=== PATIENT | female | born 1980 | race Caucasian/White ===

== ENCOUNTER 2022-07-22 08:42 | Outpatient (CLI) | payer OTHER, SELFPAY ==
[2022-07-22 08:55] LABS: Hematocrit 41.7 % (35.0-49.0); Hemoglobin 14.2 g/dL (12.0-15.0); Mean Corpuscular HGB Conc 34.1 g/dL (32.0-36.0); Mean Corpuscular Hemoglobin 31.4 pg (27.0-31.0); Mean Corpuscular Volume 92.3 fL (78.0-102.0); Mean Platelet Volume 11.1 fl (9.2-11.8); Platelet Count Result 222 K/mm3 (150-420); Red Blood Count 4.52 M/mm3 (4.20-5.40); Red Cell Distribution Width 12.3 % (11.6-14.4); White Blood Count 8.6 K/mm3 (4.8-10.8)
[2022-07-22 09:47] LABS: Alanine Aminotransferase 16 U/L (14-59); Albumin Level 3.8 g/dL (3.4-5.0); Alkaline Phosphatase 66 U/L (46-116); Anion Gap 8 mmol/L (8-16); Aspartate Amino Transferase 14 U/L (15-37); Bilirubin,Total 0.2 mg/dL (0.00-1.00); Blood Urea Nitrogen 16 mg/dL (7-18); Calcium 8.9 mg/dL (8.5-10.1); Carbon Dioxide 29 mmol/L (21-32); Chloride 105 mmol/L (98-108); Cholesterol 185 mg/dL (0-200); Estimated Glomerular Filt Rate > 60; Glucose 101 mg/dL (70-99); HDL Direct 39 mg/dL (40-60); LDL Cholesterol Calculated 128 mg/dL (<130); Osmolality Calculated 295 mOsm/kg (285-295); Potassium 4.6 mmol/L (3.5-5.1); Sodium 142 mmol/L (136-145); Thyroid Stimulating Hormone Reflex 0.96 u/IU/mL (0.36-3.74); Total Protein 7.1 g/dL (6.4-8.2); Triglycerides 92 mg/dL (0-150)
== END 2022-07-22 08:43 | disposition home or self-care (01) ==
PROVIDERS: PCP Family Medicine; Visit Provider Family Medicine
DX: Z00.00 Encounter for general adult medical examination without abnormal findings (principal); E11.9 Type 2 diabetes mellitus without complications
CPT/HCPCS: 36415; 80053; 80061; 84443; 85027

== ENCOUNTER 2023-10-21 09:38 | Outpatient (CLI) | payer OTHER, SELFPAY ==
[2023-10-21 09:50] LABS: Basophils Absolute Auto 0.02 K/mm3 (0.00-0.10); Basophils Percent Auto 0.2 % (0.0-1.0); Eosinophils Absolute Auto 0.09 K/mm3 (0.02-0.50); Eosinophils Percent Auto 0.8 % (1.0-6.0); Hematocrit 41.4 % (35.0-49.0); Hemoglobin 14.1 g/dL (12.0-15.0); Immature Granulocyte Absolute 0.05 K/mm3 (0.00-0.00); Immature Granulocyte Percent A 0.4 % (0.0-0.0); Lymphocytes Absolute Auto 1.81 K/mm3 (1.10-4.50); Lymphocytes Percent Auto 15.9 % (18.0-42.0); Mean Corpuscular HGB Conc 34.1 g/dL (32-36); Mean Corpuscular Hemoglobin 30.6 pg (27.0-31.0); Mean Corpuscular Volume 89.8 fL (78.0-102.0); Mean Platelet Volume 11.2 fl (9.2-11.8); Monocytes Absolute Auto 0.58 K/mm3 (0.10-0.90); Monocytes Percent Auto 5.1 % (2.0-11.0); Neutrophils Absolute Auto 8.85 K/mm3 (1.70-7.20); Neutrophils Percent Auto 77.6 % (50.0-70.0); Platelet Count Result 235 K/mm3 (150-420); Red Blood Count 4.61 M/mm3 (4.20-5.40); Red Cell Distribution Width 12.7 % (11.6-14.4); White Blood Count 11.4 K/mm3 (4.8-10.8)
[2023-10-21 10:45] LABS: Alanine Aminotransferase 12 U/L (14-59); Albumin Level 3.7 g/dL (3.4-5.0); Alkaline Phosphatase 65 U/L (46-116); Anion Gap 8 mmol/L (4-12); Aspartate Amino Transferase 12 U/L (15-37); Bilirubin,Total 0.2 mg/dL (0.00-1.00); Blood Urea Nitrogen 12 mg/dL (7-18); Calcium 9.1 mg/dL (8.5-10.1); Carbon Dioxide 29 mmol/L (21-32); Chloride 102 mmol/L (98-108); Cholesterol 228 mg/dL (0-200); Estimated Glomerular Filt Rate > 60; Glucose 85 mg/dL (70-99); HDL Direct 39 mg/dL (40-60); LDL Cholesterol Calculated 172 mg/dL (<130); Osmolality Calculated 286 mOsm/kg (285-295); Potassium 5.4 mmol/L (3.5-5.1); Sodium 139 mmol/L (136-145); Total Protein 7.1 g/dL (6.4-8.2); Triglycerides 87 mg/dL (0-150)
[2023-10-21 11:06] LABS: Thyroid Stimulating Hormone Reflex 1.03 u/IU/mL (0.36-3.74)
== END 2023-10-21 09:39 | disposition home or self-care (01) ==
LOC: CHSLAB 09:39
PROVIDERS: PCP Family Medicine; Visit Provider Family Medicine
DX: E03.9 Hypothyroidism, unspecified (principal); F31.9 Bipolar disorder, unspecified
CPT/HCPCS: 36415; 80053; 80061; 84443; 85025

== ENCOUNTER 2024-02-03 11:49 | Outpatient (CLI) | payer OTHER, SELFPAY ==
[2024-02-03 12:17] LABS: Hemoglobin A1C 5.2 % (<5.7)
[2024-02-03 12:46] LABS: Alanine Aminotransferase 19 U/L (14-59); Albumin Level 3.7 g/dL (3.4-5.0); Alkaline Phosphatase 85 U/L (46-116); Anion Gap 10 mmol/L (4-12); Aspartate Amino Transferase 19 U/L (15-37); Bilirubin,Total 0.4 mg/dL (0.00-1.00); Blood Urea Nitrogen 9 mg/dL (7-18); Calcium 9.1 mg/dL (8.5-10.1); Carbon Dioxide 28 mmol/L (21-32); Chloride 104 mmol/L (98-108); Cholesterol 157 mg/dL (0-200); Estimated Glomerular Filt Rate > 60; Glucose 88 mg/dL (70-99); HDL Direct 48 mg/dL (40-60); LDL Cholesterol Calculated 91 mg/dL (<130); Osmolality Calculated 291 mOsm/kg (285-295); Potassium 4.5 mmol/L (3.5-5.1); Sodium 142 mmol/L (136-145); Triglycerides 88 mg/dL (0-150)
== END 2024-02-03 11:50 | disposition home or self-care (01) ==
PROVIDERS: PCP Family Medicine; Visit Provider Nurse Practitioner Family
DX: Z00.00 Encounter for general adult medical examination without abnormal findings (principal); E78.00 Pure hypercholesterolemia, unspecified; E87.5 Hyperkalemia
CPT/HCPCS: 36415; 80053; 80061; 83036

== ENCOUNTER 2024-02-17 12:24 | Outpatient (NON) | payer OTHER, SELFPAY | END 2024-02-17 12:25 | disposition home or self-care (01) | LOC: CHSLAB 12:25 | PROVIDERS: PCP Family Medicine; Visit Provider Nurse Practitioner Family | DX: Z11.4 Encounter for screening for human immunodeficiency virus [HIV] (principal); Z12.4 Encounter for screening for malignant neoplasm of cervix; Z11.51 Encounter for screening for human papillomavirus (HPV); Z11.8 Encounter for screening for other infectious and parasitic diseases | CPT/HCPCS: 87491; 87591; 87624; 88175; G0145 ==

== ENCOUNTER 2024-08-23 13:56 | Outpatient (RCR) | payer MEDICAID, OTHER, SELFPAY ==
--- NOTE | 2024-08-23 18:05 | OPREHPOC ---
Outpatient Therapy Plan of Care This is a Multidisciplinary Plan of Care that may contain components documented by all disciplines (PT, OT, and ST.) PT Problem 1 PT Problem #1 Knowledge Deficit PT Goal 1 Goal / Goal Update PT to be independent in HEP. Target Visit 3 PT Problem 2 PT Problem #2 Pain PT Goal 1 Goal / Goal Update Pt to report a decrease in pain to no more than 2/ 10 at worst in the L hip Target Visit 12 PT Problem 3 PT Problem #3 Impaired Strength PT Goal 1 Goal / Goal Update Increase knee extension to 4+/5 increase hip flex to 4+/5 Target Visit 12 PT Problem 4 PT Problem #4 Impaired Range of Motion PT Goal 1 Goal / Goal Update Patient to attain 100 degrees or more of active hip flexion Target Visit 12 PT Problem 5 PT Problem #5 Impaired Functional Mobility PT Goal 1 Goal / Goal Update patient to be able to squat and lift 30lbs safely without increased pain patient to be able to ambulate for 30 minutes without increased pain in the lateral L hip LEFS to display 30% or less functional deficits Target Visit 12
--- NOTE | 2024-08-23 18:05 | PTOPEVAL1 ---
Assessment and note entered by JT File, PT Evaluation Information Assessment Status Evaluation ICD-10 Condition Codes (PT) Pain in left hip M25.552 Other ICD-10 Condition Codes ( M70.62 PT) Onset 04/18/2024 Subjective Information Mr. López is a 44 y old female that started having left lateral hip pain on April 18, 2024, but denies any NEHEMIAS. Onset happened when she got up to go to the bathroom and her L hip gave out. She went to the ER and had imaging. Then she was referred to an orthopedic doctor and had images and was told that she had OA and bone spurs in the L hip. Mrs. López had an an ejection at [place], which helped for about one month. Despite having hip OA the pt denies any groin pain. The pain is constant and it gets worse with heavy lifting, walking. Pt said that when the pain is at its worse it goes down her lateral thigh and under her knee cap. She also stated that the pain wakes her up at night. Tylenol, Epsom salt baths, and heat alleviate the pain. Patient reported that in her past med hx she was dx with anemia and 2- 3 herniated disc in her upper back and neck, but denies having any prior low back issues. Pt was recently unemployed and has trouble doing most daily activities. Reported Pain Level Pain Score 6: Self Report Assessment PT Clinical Summary Mrs. López, was refered to skilled PT for L hip trochanteric bursitis. She has a high % disability on LEFS, and a diagnosis of L hip OA. She has deficits in all L knee and hip strength as well as hip flexion ROM. Pt has trouble ambulating long distances and trouble doing ADL's due to pain in the L hip. Mrs. López would benefit from skilled PT to increase strength, increase ROM, increase ITB extensibility, and decrease pain to be able to perform ADLs and have a higher quality of life. Plan of Care Interventions Electrical Stimulation,Gait Training,Hot Pack/Cold Pack,Manual Therapy,Neuro Re-education,Patient/ Caregiver Education,Therapeutic Activities, Therapeutic Exercise PT Services Indicated Yes Treatment Frequency and 3x weekly for 12 visits Duration These treatments will address the objective and functional deficits as defined above. The patient will be advanced safely and appropriately in order for the patient to progress towards his/her prior level of function. Additional exercises will be introduced and as well as a comprehensive home exercise program upon discharge, if needed, ?to ensure carryover of functional gains achieved in the clinic. This treatment plan has been reviewed and agreement upon by the patient.
--- NOTE | 2024-09-17 16:58 | OPREHPOC ---
Outpatient Therapy Plan of Care This is a Multidisciplinary Plan of Care that may contain components documented by all disciplines (PT, OT, and ST.) PT Problem 1 PT Problem #1 Knowledge Deficit PT Goal 1 Goal / Goal Update PT to be independent in HEP. Target Visit 3 Progress Met PT Problem 2 PT Problem #2 Pain PT Goal 1 Goal / Goal Update Pt to report a decrease in pain to no more than 2/ 10 at worst in the L hip Target Visit 12 Progress Not Met PT Problem 3 PT Problem #3 Impaired Strength PT Goal 1 Goal / Goal Update Increase knee extension to 4+/5 -met increase hip flex to 4+/5 -not met Target Visit 12 Progress Partially Met PT Problem 4 PT Problem #4 Impaired Range of Motion PT Goal 1 Goal / Goal Update Patient to attain 100 degrees or more of active hip flexion Target Visit 12 Progress Met PT Problem 5 PT Problem #5 Impaired Functional Mobility PT Goal 1 Goal / Goal Update patient to be able to squat and lift 30lbs safely without increased pain -not met patient to be able to ambulate for 30 minutes without increased pain in the lateral L hip - partially met, pt was able to perform this task but not without increased pain LEFS to display 30% or less functional deficits - not met Target Visit 12 Progress Partially Met
--- NOTE | 2024-09-17 16:58 | PTOPPROG ---
Assessment and note entered by Clementine Goel, PT Evaluation Information Assessment Status Progress ICD-10 Condition Codes (PT) Pain in left hip M25.552 Other ICD-10 Condition Codes ( M70.62 PT) Onset 04/18/2024 Subjective Information Akanksha reports her hip has improved slightly since beginning therapy. Her resting pain level isn't so high, however she still notes an increase in pain with prolonged walking and sitting and lying on her L side. She was able to walk approx. 12 blocks the other day without limping however she still had increased pain with this task. Assessment PT Clinical Summary Mrs. López has attended 10 total skilled PT visits addressing L hip pain that began in April 2024. Since beginning therapy her pain is reduced and she demonstrates good improvements in her LE strength. Despite these improvements her pain still increases to moderate levels with activity, prolonged sitting and walking, and lying on her left side. She also still demonstrates strength deficits and is unable to lift heavy loads or work due to pain. She will benefit from continued skilled PT intervention to improve deficits to be able to return to daily functional tasks with less pain. Plan of Care Interventions Electrical Stimulation,Gait Training,Hot Pack/Cold Pack,Manual Therapy,Neuro Re-education,Patient/ Caregiver Education,Therapeutic Activities, Therapeutic Exercise PT Services Indicated Yes Treatment Frequency and Continue per original POC Duration These treatments will address the objective and functional deficits as defined above. The patient will be advanced safely and appropriately in order for the patient to progress towards his/her prior level of function. Additional exercises will be introduced and as well as a comprehensive home exercise program upon discharge, if needed, ?to ensure carryover of functional gains achieved in the clinic. This treatment plan has been reviewed and agreement upon by the patient.
--- NOTE | 2024-09-21 15:49 | PTOPDC ---
Assessment and note entered by JT File, PT Evaluation Information Assessment Status Discharge ICD-10 Condition Codes (PT) Pain in left hip M25.552 Other ICD-10 Condition Codes ( M70.62 PT) Onset 04/18/2024 Subjective Information patient reports continues to have significant pain in the L hip that is increased with standing and walking. she reports she walked about 18 block the other day and the hip was really hurting afterwards. she reports she has not had much improvement with PT, and the injection to the hip earlier this year did not help. Reported Pain Level Pain Score 2: Self Report Assessment PT Clinical Summary mrs. morris presents to skilled PT services for her 12th skilled PT visit today. she displays continued pain in the L hip that is increased with walking and standing activities. she displays positive L hip ELINOR, FADIR, and scour test as well as OA and a labral tear on MRI. patient will DC skilled PT today and continue with HEP independent. she was educated to follow up with PCP to get into ortho ALYSSA. Plan of Care PT Services Indicated Yes
== END 2024-09-21 09:53 | disposition home or self-care (01) ==
LOC: CHSPT 13:56
PROVIDERS: PCP Family Medicine; Visit Provider Family Medicine
DX: M70.62 Trochanteric bursitis, left hip (principal)
CPT/HCPCS: 97014; 97110; 97112; 97140; 97150; 97161; 97530; G0283

== ENCOUNTER 2025-02-15 13:14 | Outpatient (CLI) | payer OTHER, SELFPAY ==
--- NOTE | ~2025-02-15 | XR_ITS ---
EXAM/PROCEDURE: XR chest 2V HISTORY: Pre-Op COMPARISON: None available. TECHNIQUE: Two view(s) of the chest. FINDINGS: LUNGS: Clear of acute processes. PLEURAL SPACES: Clear. No evidence of fluid or pneumothorax. HEART/ MEDIASTINUM: Normal in appearance. SOFT TISSUES: No significant findings. BONES: No acute osseous abnormality. IMPRESSION: No acute findings. Reviewed, dictated and finalized at location A. IMPRESSION: No acute findings.
--- OUTSIDE RECORDS SUMMARY | 2025-02-15 13:18 | XMS_ITS | Clinical Summary ---
Author Organization [facility] Address [address] [place] [address] Care Team Providers Care Kiln Setter Name Role Phone Sean Robertson Primary Care Provider Allergies Active Allergy Reactions Criticality Noted Date Comments Latex Rash Medium 02/25/2022 Pt states it causes her skin to turn white and peel off Medications ALPRAZolam (XANAX) 0.5 mg tablet 11/01/2024 Active atorvastatin (LIPITOR) 40 mg tablet Take 1 tablet (40 mg total) by mouth daily 11/29/2024 Active cyclobenzaprine (FLEXERIL) 7.5 mg tablet Take 1 tablet (7.5 mg total) by mouth 3 (three) times a day as needed for muscle spasms 11/23/2024 Active hydrOXYzine (ATARAX) 50 mg tablet TAKE 1 TABLET BY MOUTH ONCE DAILY NEEDED FOR ANXIETY 11/20/2024 Active OLANZapine (ZyPREXA) 10 mg tablet Take 1 tablet (10 mg total) by mouth nightly 11/20/2024 Active celecoxib (CeleBREX) 200 mg capsule Take 1 capsule (200 mg total) by mouth every 12 (twelve) hours 60 capsule 12/20/2024 Active Active Problems No known active problems Encounters Date Type Department Care Team Description 02/05/2025 11:45 AM CDT Office Visit [facility] Orthopedics and Sports Medicine [address] [place] [phone] Florian Ponce MD Primary osteoarthritis of left hip (Primary Dx); Pre-op testing 02/05/2025 7:39 AM CDT - 02/05/2025 11:59 PM CDT Hospital Encounter [facility] Medical [facility] Orthopedics and Sports Medicine [address] [place] [phone] Discharge Disposition: Discharge to home or self care 02/05/2025 Telephone [facility] Orthopedics and Sports Medicine [address] [place] [address] [address] [place] [address] Florian Ponce MD 02/05/2025 Orders Only [facility] Orthopedics and Sports Medicine [address] [place] [address] [address] [place] [address] Florian Ponce MD Pre-op testing (Primary Dx) 12/20/2024 11:30 AM CDT Office Visit [facility] Orthopedic and Sports Medicine [address] [place] [phone] Yue Higgins PA Primary osteoarthritis of left hip (Primary Dx) 12/20/2024 11:20 AM CDT Ancillary Procedure [facility] Imaging at [address] [phone] Left hip pain 12/20/2024 Telephone [facility] Sports Medicine and Primary Care at [address] [place] [phone] Yue Higgins PA 12/20/2024 Telephone [facility] Orthopedics and Sports Medicine [address] [place] [address] [address] [place] [address] Yue Higgins PA from Last 3 Months Social History Tobacco Use Types Packs/Day Years Used Date Smoking Tobacco: Former Cigarettes Smokeless Tobacco: Current Tobacco Cessation:Ready to Q uit: No; Counseling Given: Not Answered Alcohol Use Standard Drinks/Week Comments Never 0 (1 standard drink = 0.6 oz pur e alcohol) AUDIT-C Answer Date Recorded Q1: How often do you have a drink containing alcohol? Never 12/20/2024 Q2: How many drinks containi ng alcohol do you have on a typical day when you are drinking? Patient does not drink Q3: How often do you have si x or more drinks on one occasion? Never 12/20/2024 Comments Unknown Sex and Gender Information Value Date Recorded Sex Assigned at Not on file Legal Sex Female 3:05 PM CDT Gender Identity Not on file Sexual Orientation Not on file Obstetrics History Last Filed Vital Signs Vital Sign Reading Time Taken Comments Blood Pressure 120/80 12/20/2024 11:32 AM CDT Pulse 67 12/20/2024 11:32 AM CDT Temperature - - Respiratory Rate - - Oxygen Saturation - - Inhaled Oxygen Concentration - - Weight 62.1 kg (136 lb 12.8 oz) 025 12:13 PM CDT Height 162.6 cm (5' 4) 02/05/2025 12:1 3 PM CDT Body Mass Index 23.48 02/05/2025 12:13 PM CDT Plan of Treatment Health Maintenance Due Date Last Done Comments Breast Cancer Screening-Mammogram 1980 Cervical Cancer Screening 1980 Depression Screening 1980 Hepatitis C Screening 1980 Varicella Vaccines (1 of 2 - 13+ 2-dose series) 1993 Regular Well Visit/Exam 18-64 1998 HPV Vaccines (1 - 3-dose SCD M series) 2007 Influenza Vaccine (#1) 2024 DTaP/Tdap/Td Vaccine (2 - Td or Tdap) 10/19/2034 10/19/2024 Hepatitis B Screening Completed 12/06/2024 , 10/19/2024 Pneumococcal vaccine <65 Aged Out No longer eligible based on patient's age to complete this topic Procedures Procedure Name Priority Date/Time Associated Diagnosis Comments XR HIP LEFT W PELVIS 2 OR 3 VIEWS Schedule Routine, Read Routine (OP Routine) 12/20/2024 11:26 AM CDT Left hip pain from Last 3 Months Results * XR Hip Left 2 or 3 Views W Pelvis (12/20/2024 11:26 AM CDT) Anatomical Region Laterality Modality Lower Extremities, Hip, Pelvis Left D igital Radiography Narrative 12/21/2024 12:57 PM CDT X-ray of the pelvis and left hip viewed and interpreted. There is no evidence of fracture, subluxation, or bony abnormality. Advanced degenerative joint changes present with joint space narrowing, loose bodies, osteophyte formation, and subchondral changes. Yue ROWE IMG XR PROCEDURES Final Result from Last 3 Months Insurance [facility] Care Teams Kiln Setter Relationship Specialty Start Date End Date Sean Robertson DO [address] [place] [address] PCP - General Family Medicine 12/05/24
--- OUTSIDE RECORDS SUMMARY | 2025-02-15 13:18 | XMS_ITS | Clinical Summary ---
Author Organization [facility] Address [address] [place] [address] Care Team Providers Care Exchange Administrator Name Role Phone NahumNasra ayersdean LOPEZ Primary Care Provider [phone] Allergies Active Allergy Reactions Criticality Noted Date Comments Latex Rash Low 02/25/2022 Pt states it causes her skin to turn white and peel off Medications lamoTRIgine (LAMICTAL) 100 MG tablet Take 1 tablet (100 mg total) by mouth daily. Active HYDROXYZINE HCL OR Active diclofenac EC (VOLTAREN) 75 MG tablet Take 1 tablet (75 mg total) by mouth 2 (two) times daily. 28 tablet 02/25/2022 Active prochlorperazine (COMPAZINE) 10 MG tablet Take 1 tablet (10 mg total) by mouth every 6 (six) hours as needed. 20 tablet 05/01/2022 Active pantoprazole EC (PROTONIX) 40 MG tablet Take 1 tablet (40 mg total) by mouth daily. 7 tablet 05/01/2022 Active HYDROcodone-acet aminophen (NORCO) 5-325 MG tabletIndication s:Acute Pain < 3 Day Supply Take 1 tablet by mouth every 6 (six) hours as needed for Pain. Indications : Acute Pain < 3 Day Supply 12 tablet 05/01/2022 Active Active Problems Problem Noted Date Diagnosed Date Primary osteoarthritis of left hip 04/26/2024 Social History Tobacco Use Types Packs/Day Years Used Date Smoking Tobacco: Never Smokeless Tobacco: Never Tobacco Cessation:Counseling Given: No Comments:na PHQ-2 Answer Date Recorded Patient Health Questionnaire-2 Score 0 04/26/2024 Comments Unknown Sex and Gender Information Value Date Recorded Sex Assigned at Female 05/09/2024 12:14 PM PIANO ASSEMBLER Legal Sex Female 1:03 PM PIANO ASSEMBLER Gender Identity Not on file Sexual Orientation Not on file Last Filed Vital Signs Vital Sign Reading Time Taken Comments Blood Pressure 112/79 04/26/2024 2:53 PM PIANO ASSEMBLER Pulse 62 04/26/2024 2:53 PM PIANO ASSEMBLER Temperature 36.1 C (97 F) 04/26/2024 2:53 PM PIANO ASSEMBLER Respiratory Rate 19 04/26/2024 2:53 PM PIANO ASSEMBLER Oxygen Saturation 97% 04/26/2024 2:53 PM PIANO ASSEMBLER Inhaled Oxygen Concentration - - Weight 63.3 kg (139 lb 9.6 oz) 04/26/2024 2:53 P M PIANO ASSEMBLER Height 162.6 cm (5' 4) 04/26/2024 2:53 PM PIANO ASSEMBLER Body Mass Index 23.96 04/26/2024 2:53 PM PIANO ASSEMBLER Plan of Treatment Health Maintenance Due Date Last Done Comments Cervical Cancer Screening Pa p Smear (Age 30 to 64) Every 3 Years 1980 Annual Physical 1983 Hepatitis C 1998 DTaP, Tdap and Td Vaccines ( 1 - Tdap) 1999 Hepatitis B Vaccines (1 of 3 - 19+ 3-dose series) 1999 HPV Vaccines (1 - 3-dose SCD M series) 2007 Mammogram Screening 2020 COVID-19 Vaccine (1 - 2024-2 6 season) 2024 Influenza Adult (#1) 2025 Cervical Cancer Screening Pa p with HPV Testing (Age 30 to 64) Every 5 Years 02/16/2029 02/17/2024 Cervical Cancer Screening with HPV 02/16/2029 PHQ-2 (Physician [place]) Completed 04/26/2024 Hepatitis A Vaccines Aged Out No long er eligible based on patient's age to complete this topic Meningococcal B Vaccine Aged Out No l onger eligible based on patient's age to complete this topic Meningococcal Vaccine Aged Out No destini yovani eligible based on patient's age to complete this topic Pneumococcal Vaccine: Pediat rics (0 to 5 Years) and At-Risk Patients (6 to 49 Years) Aged Out No longer eligi ble based on patient's age to complete this topic RSV Immunizations Under 20 Months Aged Out No longer eligible based on patient's age to complete this topic Procedures Procedure Name Priority Date/Time Associated Diagnosis Comments HUMAN PAPILLOMAVIRUS, HIGH-RISK TYPES Routine 02/17/2024 8:00 AM CDT from Last 3 Months or Most Recently Relevant to Health Maintenance Results * HUMAN PAPILLOMAVIRUS, HIGH-RISK TYPES (02/17/2024 8:00 AM CDT) SPEC DESCRIPTION CERVIX 02/21/20 24 2:04 PM PIANO ASSEMBLER [facility] HPV DNA HIGH RISK NEGATIVE NEGATIVE 02/23/2024 12:13 AM [facility] Comment:SEE CYTOLOGY REPORT 02/17/2024 8:00 AM CDT Josie Stratton FIELD TEST ENGINEER PATHOLOGY/CYTOLOGY ORDERABLES Final Result [facility] [address] [place] [address], from Last 3 Months or Most Recently Relevant to Health Maintenance Insurance [employer] Care Teams Exchange Administrator Relationship Specialty Start Date End Date Sean Robertson DO [address] [place] [address] PCP - General FAMILY PRACTICE 05/09/24
--- NOTE | 2025-02-15 13:35 | ECG_ITS ---
Test Date: 2025-02-15 14:02:49 Measurements Intervals [place] Rate: 74 P: 56 [place]: 175 QRS: 82 QRSD: 82 T: 73 QT: 382 QTc: 425 Interpretive Statements SINUS RHYTHM NORMAL ECG No previous ECG available for comparison Electronically Signed On 02-15-2025 14:04:47 CDT by Antony Waldrop D.O.
[2025-02-15 13:41] LABS: Hematocrit 42.3 % (35.0-49.0); Hemoglobin 14.0 g/dL (12.0-15.0); Immature Granulocyte Percent A 0.4 % (0.0-0.0); Lymphocytes Absolute Auto 1.99 K/mm3 (1.10-4.50); Mean Corpuscular HGB Conc 33.1 g/dL (32-36); Mean Corpuscular Hemoglobin 30.2 pg (27.0-31.0); Mean Corpuscular Volume 91.4 fL (78.0-102.0); Nucleated Red Blood Cells Absolute Auto 0.00 K/mm3 (0.00-0.00); Nucleated Red Blood Cells Perc 0.0 % (0-0.0); Platelet Count Result 247 K/mm3 (150-420); Red Blood Count 4.63 M/mm3 (4.20-5.40); White Blood Count 11.5 K/mm3 (4.8-10.8)
[2025-02-15 13:44] LABS: Add Urine Microscopic? YES; Glucose Urine UA Negative (Negative); Leukocyte Esterase Ur Trace (Negative); Nitrate Urine Negative (Negative); Specific Grav Ur 1.020 (1.010-1.020)
[2025-02-15 13:47] LABS: Appearance Urine Sl Cloudy (Clear)
[2025-02-15 13:58] LABS: Hemoglobin A1C 5.0 % (<5.7)
[2025-02-15 14:20] LABS: Alanine Aminotransferase 18 U/L (6-35); Albumin Level 4.8 g/dL (3.5-5.1); Alkaline Phosphatase 84 U/L (38-126); Anion Gap 9 mmol/L (4-12); Aspartate Amino Transferase 24 U/L (14-36); Bilirubin,Total 0.6 mg/dL (0.2-1.3); Blood Urea Nitrogen 19 mg/dL (7-17); Calcium 9.5 mg/dL (8.4-10.2); Carbon Dioxide 27 mmol/L (22-30); Chloride 109 mmol/L (98-107); Estimated Glomerular Filt Rate > 60; Glucose 85 mg/dL (65-110); Osmolality Calculated 301 mOsm/kg (285-295); Potassium 4.5 mmol/L (3.4-5.0); Sodium 145 mmol/L (137-145); Total Protein 7.3 g/dL (6.3-8.2)
== END 2025-02-15 13:15 | disposition home or self-care (01) ==
PROVIDERS: PCP Family Medicine; Visit Provider Orthopaedic Surgery
DX: Z01.818 Encounter for other preprocedural examination (principal); M16.12 Unilateral primary osteoarthritis, left hip
CPT/HCPCS: 36415; 71046; 80053; 81001; 83036; 85025; 93005